=== PATIENT | female | born 1955 | race Caucasian/White ===

== ENCOUNTER 2018-09-21 10:42 | Emergency (ER) | payer BC, SELFPAY ==
[2018-09-21 10:54] VITALS: BP 152/88; PULSE 87; RESP 18; TEMP 36.5; O2SAT 99
--- NOTE | 2018-09-21 12:06 | ED.LOWEXIN ---
HPI - Extremity Injury (Lower) <Lady Bains PA-C - Last Filed: 09/21/18 21:45> General Chief Complaint: Extremity Injury, Lower Stated Complaint: Twisted left knee Time Seen by Provider: 09/21/18 12:05 Source: patient Mode of arrival: ambulatory Limitations: no limitations History of Present Illness HPI Narrative: This 63-year-old female complains of recurrent and worsening left knee pain. She states that she initially ?tore? the knee after pivoting a couple of times and had swelling and pain that gradually improved over about 6 months though she would still notice stiffness and pain especially removing from sit to stand. She states a couple of weeks ago after flying she had some increased pain, and she tripped over an area rug 3 nights ago and twisted awkwardly. She did not fall on the knee, but she has had ?excruciating? pain since then, that feels like a knife on the side of her knee especially with weight-bearing and movement. She states that she has not noticed as much swelling as over the summer, but this is more painful. She states that the pain is also worse with her ankle or groin/hip in certain positions but she does not feel like she has pain in her hip or ankle, no injuries to those areas. She states that pain is what stops her from movement and she can't tell whether there is any laxity. Pain was bad enough today that she could not even get to the crutches that she was using so decided to come in. She has tried naproxen periodically for pain which helps. Tried acetaminophen that gives stomach upset. 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 but not sure what it was Related Data Previous Rx's Medication Instructions Recorded lidocaine [Lidoderm] 2 patch TOP DAILY #30 each 09/21/18 naproxen 250 mg PO Q12H #30 tab 09/21/18 Allergies Allergy/AdvReac Type Severity Reaction Status Date / Time acetaminophen Allergy Abdominal Verified 09/21/18 13:20 Pain Penicillins Allergy Verified 09/21/18 13:20 Sulfa (Sulfonamide Allergy Verified 09/21/18 13:20 Antibiotics) Review of Systems <Lady Bains PA-C - Last Filed: 09/21/18 21:45> Review of Systems ROS Unobtainable: All systems reviewed & are unremarkable except as noted in HPI and below PFSH <Lady Bains PA-C - Last Filed: 09/21/18 21:45> Medical History (Updated 09/21/18 @ 13:31 by Lady Bains PA-C) Hypothyroidism (Chronic) Surgical History (Updated 09/21/18 @ 12:28 by Lady Bains PA-C) Status post oophorectomy (Resolved) Status post partial thyroidectomy (Resolved) Social History Smoking Status: Never smoker Social History Smoking Status: Never smoker Exam <Lady Bains PA-C - Last Filed: 09/21/18 21:45> Narrative Exam Narrative: GENERAL APPEARANCE: Patient sitting comfortably, in no distress. LUNGS: Clear to auscultation bilaterally. HEART: Rate and rhythm regular without murmur, normal S1 and S2, no S3 or S4. MUSCULOSKELETAL: Left knee there is trace effusion, moderate tenderness around the medial border of the patella common no tenderness over the joint line or other areas. She is able to flex the knee to about 45? with some tenderness. tender with passive flexion as well. She is able to fully extend. No anterior or posterior laxity. She is tender with valgus stress, unable to assess fully for laxity secondary to tenderness. No tenderness about the hip or ankle, negative Luis Enrique sign Initial Vital Signs Initial Vital Signs: Vital Signs Temperature 97.7 F 09/21/18 10:54 Pulse Rate 87 09/21/18 10:54 Respiratory Rate 18 09/21/18 10:54 Blood Pressure 152/88 H 09/21/18 10:54 Pulse Oximetry 99 09/21/18 10:54 <Vivian Ortiz DO - Last Filed: 09/22/18 09:27> Initial Vital Signs Initial Vital Signs: Vital Signs Temperature 97.7 F 09/21/18 10:54 Pulse Rate 87 09/21/18 10:54 Respiratory Rate 18 09/21/18 10:54 Blood Pressure 152/88 H 09/21/18 10:54 Pulse Oximetry 99 09/21/18 10:54 Course <Lady Bains PA-C - Last Filed: 09/21/18 21:45> Additional Information: The patient was given an immobilizer splint and felt that she would be more comfortable walking at home with a walker versus crutches. Given a walker. She will speak with her PCP and insurance since out of state and arrange for follow-up with local orthopedic provider. Orders Ordered: Discontinued Medications Naproxen (Naprosyn) 500 mg PO NOW ONE Stop: 09/21/18 12:24 Last Admin: 09/21/18 13:40 Dose: 500 mg Vital Signs - 8 hr 09/21/18 10:54 Temperature 97.7 F Pulse Rate 87 Respiratory Rate 18 Blood Pressure 152/88 H Pulse Oximetry 99 <Vivian Ortiz DO - Last Filed: 09/22/18 09:27> Orders Ordered: Discontinued Medications Naproxen (Naprosyn) 500 mg PO NOW ONE Stop: 09/21/18 12:24 Last Admin: 09/21/18 13:40 Dose: 500 mg Vital Signs - 8 hr 09/21/18 10:54 Temperature 97.7 F Pulse Rate 87 Respiratory Rate 18 Blood Pressure 152/88 H Pulse Oximetry 99 MDM - Extremity Injury (Lower) <Lady Bains PA-C - Last Filed: 09/21/18 21:45> Imaging Data knee: Radiologist's impression: [place] [address] XRay Report Signed Patient: Tawana Lyn#: [id number] : 5Acct:[id number] Age/Sex: 63 / FDate of Service: 09/21/18 Loc: ED Accession Number: [id number] Procedure: XR knee LT 3V Ordering Provider: Lady Bains P.A-C PROCEDURE: XR KNEE LT 3V INDICATIONS: recurrent pain, effusion medial TECHNIQUE: 3 views of the knee were acquired. COMPARISON: None. FINDINGS: Bones: No fractures or dislocations. No suspicious bony lesions. Soft tissues: Small left knee joint effusion. IMPRESSION: Small left knee joint effusion, with no fracture or dislocation of the left knee identified. Consider followup radiographs in 7-10 days if there is continued clinical concern. Dictated by: José Saunders M.D. on 09/21/2018 at 12:57 Approved by: José Saunders M.D. on 09/21/2018 at 13:00 Discharge Plan Departure Patient Disposition: Home Clinical Impression: Internal derangement of left knee Discharge Date/Time: 09/21/18 14:03 Interventions: ED Discharge Assessment Last Done: 09/21/18 14:03 Instructions: DI for Meniscal Tear Activity Restrictions/Additional Instructions: I agree with you that your knee pain sounds most like a torn meniscus or other soft tissue or ligamentous injury (there may be a combination given your previous injuries). There was a little bit of fluid in the joint today on her x-ray, likely due to the acute injury, but no acute problem in the bone or joint found. Please use the knee immobilizer brace and crutches, and you can start gentle weight-bearing with the brace as you tolerate on flat ground. Avoid uneven surfaces. Take rsuy-dek-mdsupoh naproxen (Aleve) 1 tablet twice daily for pain and inflammation, and you can increase to 2 tablets if needed. It is also okay to add topical rubs or medicines as well as use ice and heat, and I have sent in a prescription for lidocaine patches for you to put on the sore areas during the daytime. Please talk with your primary care office and your insurance and request a referral to a local rn documentation specialist and set up an appointment as soon as possible for further evaluation. Prescriptions: New lidocaine [Lidoderm] 5 % adhesive patch,medicated 2 patch TOP DAILY Qty: 30 RF: 0 naproxen 250 mg tablet 250 mg PO Q12H Qty: 30 RF: 0 Referrals: [facility] [Other] <Vivian Ortiz DO - Last Filed: 09/22/18 09:27> Cosign ED Attending Cosignature Attestation: I was immediately available in the department for consultation. This documentation has been reviewed and I agree with assessment and plan. Supervised by Vivian Ortiz DO
--- NOTE | 2018-09-21 12:23 | DI.RAD.S_ITS ---
PROCEDURE: XR KNEE LT 3V INDICATIONS: recurrent pain, effusion medial TECHNIQUE: 3 views of the knee were acquired. COMPARISON: None. FINDINGS: Bones: No fractures or dislocations. No suspicious bony lesions. Soft tissues: Small left knee joint effusion. IMPRESSION: Small left knee joint effusion, with no fracture or dislocation of the left knee identified. Consider followup radiographs in 7-10 days if there is continued clinical concern. Dictated by: José Saunders M.D. on 09/21/2018 at 12:57 Approved by: José Saunders M.D. on 09/21/2018 at 13:00
--- NOTE | 2018-09-21 12:29 | ED_ITS ---
HPI - Extremity Injury (Lower) <Lady Bains PA-C - Last Filed: 09/21/18 21:45> General Chief Complaint: Extremity Injury, Lower Stated Complaint: Twisted left knee Time Seen by Provider: 09/21/18 12:05 Source: patient Mode of arrival: ambulatory Limitations: no limitations History of Present Illness HPI Narrative: This 63-year-old female complains of recurrent and worsening left knee pain. She states that she initially ?tore? the knee after pivoting a couple of times and had swelling and pain that gradually improved over about 6 months though she would still notice stiffness and pain especially removing from sit to stand. She states a couple of weeks ago after flying she had some increased pain, and she tripped over an area rug 3 nights ago and twisted awkwardly. She did not fall on the knee, but she has had ?excruciating? pain since then, that feels like a knife on the side of her knee especially with weight-bearing and movement. She states that she has not noticed as much swelling as over the summer, but this is more painful. She states that the pain is also worse with her ankle or groin/hip in certain positions but she does not feel like she has pain in her hip or ankle, no injuries to those areas. She states that pain is what stops her from movement and she can't tell whether there is any laxity. Pain was bad enough today that she could not even get to t he crutches that she was using so decided to come in. She has tried naproxen periodically for pain which helps. Tried acetaminophen that gives stomach upset. 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 but not sure what it was Related Data Previous Rx's Medication Instructions Recorded lidocaine [Lidoderm] 2 patch TOP DAILY #30 each 09/21/18 naproxen 250 mg PO Q12H #30 tab 09/21/18 Allergies Allergy/AdvReac Type Severity Reaction Status Date / Time acetaminophen Allergy Abdominal Verified 09/21/18 13:20 Pain Penicillins Allergy Verified 09/21/18 13:20 Sulfa (Sulfonamide Allergy Verified 09/21/18 13:20 Antibiotics) Review of Systems <Lady Bains PA-C - Last Filed: 09/21/18 21:45> Review of Systems ROS Unobtainable: All systems reviewed & are unremarkable except as noted in HPI and below PFSH <Lady Bains PA-C - Last Filed: 09/21/18 21:45> Medical History (Updated 09/21/18 @ 13:31 by Lady Bains PA-C) Hypothyroidism (Chronic) Surgical History (Updated 09/21/18 @ 12:28 by Lady Bains PA-C) Status post oophorectomy (Resolved) Status post partial thyroidectomy (Resolved) Social History Smoking Status: Never smoker Social History Smoking Status: Never smoker Exam <Lady Bains PA-C - Last Filed: 09/21/18 21:45> Narrative Exam Narrative: GENERAL APPEARANCE: Patient sitting comfortably, in no distress. LUNGS: Clear to auscultation bilaterally. HEART: Rate and rhythm regular without murmur, normal S1 and S2, no S3 or S4. MUSCULOSKELETAL: Left knee there is trace effusion, moderate tenderness around the medial border of the patella common no tenderness over the joint line or other areas. She is able to flex the knee to about 45? with some tenderness. tender with passive flexion as well. She is able to fully extend. No anterior or posterior laxity. She is tender with valgus stress, unable to assess fully for laxity secondary to tenderness. No tenderness about the hip or ankle, negative Luis Enrique sign Initial Vital Signs Initial Vital Signs: Vital Signs Temperature 97.7 F 09/21/18 10:54 Pulse Rate 87 09/21/18 10:54 Respiratory Rate 18 09/21/18 10:54 Blood Pressure 152/88 H 09/21/18 10:54 Pulse Oximetry 99 09/21/18 10:54 <Vivian Ortiz DO - Last Filed: 09/22/18 09:27> Initial Vital Signs Initial Vital Signs: Vital Signs Temperature 97.7 F 09/21/18 10:54 Pulse Rate 87 09/21/18 10:54 Respiratory Rate 18 09/21/18 10:54 Blood Pressure 152/88 H 09/21/18 10:54 Pulse Oximetry 99 09/21/18 10:54 Course <Lady Bains PA-C - Last Filed: 09/21/18 21:45> Additional Information: The patient was given an immobilizer splint and felt that she would be more comfortable walking at home with a walker versus crutches. Given a walker. She will speak with her PCP and insurance since out of state and arrange for follow-up with local orthopedic provider. Orders Ordered: Discontinued Medications Naproxen (Naprosyn) 500 mg PO NOW ONE Stop: 09/21/18 12:24 Last Admin: 09/21/18 13:40 Dose: 500 mg Vital Signs - 8 hr 09/21/18 10:54 Temperature 97.7 F Pulse Rate 87 Respiratory Rate 18 Blood Pressure 152/88 H Pulse Oximetry 99 <Vivian Ortiz DO - Last Filed: 09/22/18 09:27> Orders Ordered: Discontinued Medications Naproxen (Naprosyn) 500 mg PO NOW ONE Stop: 09/21/18 12:24 Last Admin: 09/21/18 13:40 Dose: 500 mg Vital Signs - 8 hr 09/21/18 10:54 Temperature 97.7 F Pulse Rate 87 Respiratory Rate 18 Blood Pressure 152/88 H Pulse Oximetry 99 MDM - Extremity Injury (Lower) <Lady Bains PA-C - Last Filed: 09/21/18 21:45> Imaging Data knee: Radiologist's impression: [place] [address] XRay Report Signed Patient: Tawana Lyn#: [id number] : 5Acct:[id number] Age/Sex: 63 / FDate of Service: 09/21/18 Loc: ED Accession Number: [id number] Procedure: XR knee LT 3V Ordering Provider: Lady Bains P.A-C PROCEDURE: XR KNEE LT 3V INDICATIONS: recurrent pain, effusion medial TECHNIQUE: 3 views of the knee were acquired. COMPARISON: None. FINDINGS: Bones: No fractures or dislocations. No suspicious bony lesions. Soft tissues: Small left knee joint effusion. IMPRESSION: Small left knee joint effusion, with no fracture or dislocation of the left knee identified. Consider followup radiographs in 7-10 days if there is continued clinical concern. Dictated by: José Saunders M.D. on 09/21/2018 at 12:57 Approved by: José Saunders M.D. on 09/21/2018 at 13:00 Discharge Plan Departure Patient Disposition: Home Clinical Impression: Internal derangement of left knee Discharge Date/Time: 09/21/18 14:03 Interventions: ED Discharge Assessment Last Done: 09/21/18 14:03 Instructions: DI for Meniscal Tear Activity Restrictions/Additional Instructions: I agree with you that your knee pain sounds most like a torn meniscus or other soft tissue or ligamentous injury (there may be a combination given your previous injuries). There was a little bit of fluid in the joint today on her x-ray, likely due to the acute injury, but no acute problem in the bone or joint found. Please use the knee immobilizer brace and crutches, and you can start gentle weight-bearing with the brace as you tolerate on flat ground. Avoid uneven surfaces. Take mves-aio-goucdia naproxen (Aleve) 1 tablet twice daily for pain and inflammation, and you can increase to 2 tablets if needed. It is also okay to add topical rubs or medicines as well as use ice and heat, and I have sent in a prescription for lidocaine patches for you to put on the sore areas during the daytime. Please talk with your primary care office and your insurance and request a referral to a local strategic debriefing specialist and set up an appointment as soon as possible for further evaluation. Prescriptions: New lidocaine [Lidoderm] 5 % adhesive patch,medicated 2 patch TOP DAILY Qty: 30 RF: 0 naproxen 250 mg tablet 250 mg PO Q12H Qty: 30 RF: 0 Referrals: [facility] [Other] <Vivian Ortiz DO - Last Filed: 09/22/18 09:27> Cosign ED Attending Cosignature Attestation: I was immediately available in the department for consultation. This documentation has been reviewed and I agree with assessment and plan. Supervised by Vivian Ortiz DO
[2018-09-21 13:15] VITALS: BP 147/72; PULSE 81; RESP 18; O2SAT 98
[2018-09-21] MEDS: NAPROXEN 250 MG TABLET 500 MG PO (13:40)
== END 2018-09-21 14:03 | disposition home or self-care (01) ==
PROVIDERS: Emergency Provider Internal Medicine
DX: M23.92 Unspecified internal derangement of left knee (principal)
CPT/HCPCS: 73562; 99283

== ENCOUNTER → 2021-05-18 08:31 | Outpatient (CLI) | payer OTHER, SELFPAY ==
[2021-05-18 18:54] LABS: Alanine Aminotransferase 27 IU/L (<35); Albumin 3.9 g/dL (3.5-5.0); Albumin Globulin Ratio 1.4 (1.0-2.8); Alkaline Phosphatase 115 U/L (38-126); Aspartate Aminotransferase 33 IU/L (14-36); BUN Creatinine Ratio 27.8 (6-22); Bilirubin Total 0.6 mg/dL (0.2-1.3); Blood Urea Nitrogen 20 mg/dL (7-17); Calcium 9.5 mg/dL (8.4-10.2); Carbon Dioxide 24 mmol/L (22-32); Chloride 105 mmol/L (98-107); Cholesterol 182 mg/dL (140-199); Estimated Glomerular Filt Rate > 60.0 mL/min (>60); Globulin 2.7 g/dL (1.7-4.1); Glucose 95 mg/dL (80-110); HDL Cholesterol 53 mg/dL (40-60); HEMOLYSIS 19 (0-50); LDL Cholesterol Calculated 103 mg/dL (<100); Potassium 4.4 mmol/L (3.4-5.1); Sodium 137 mmol/L (137-145); Total Protein 6.6 g/dL (6.3-8.2); Triglycerides 129 mg/dL (35-150)
[2021-05-18 18:56] LABS: Hemoglobin A1C% w Est Avg Glu 5.3 % (4.0-6.0)
[2021-05-18 19:09] LABS: Vitamin D 25 Hydroxy (D3) 72.3 ng/mL (30.0-100.0)
[2021-05-18 19:40] LABS: Vitamin B12 786 pg/mL (239-931)
== END ==
PROVIDERS: PCP Physician Assistant Medical; Visit Provider Physician Assistant Medical
DX: Z78.9 Other specified health status (principal); E78.5 Hyperlipidemia, unspecified; R73.9 Hyperglycemia, unspecified
CPT/HCPCS: 80053; 80061; 82306; 82607; 83036

== ENCOUNTER → 2021-06-23 11:36 | Outpatient (CLI) | payer OTHER, SELFPAY ==
[2021-06-23 19:50] LABS: TSH w/ Reflex to FT4 < 0.02 uIU/mL (0.47-4.68)
[2021-06-23 20:40] LABS: Free T4, Direct Thyroxine 1.31 ng/dL (0.78-2.19)
== END ==
PROVIDERS: PCP Physician Assistant Medical; Visit Provider Physician Assistant Medical
DX: E03.9 Hypothyroidism, unspecified (principal)
CPT/HCPCS: 84439; 84443

== ENCOUNTER → 2021-10-15 11:08 | Outpatient (CLI) | payer OTHER, SELFPAY ==
[2021-10-15 19:35] LABS: Free T3, Triiodothyronine Free 7.25 pg/mL (2.77-5.27); Free T4, Direct Thyroxine 1.54 ng/dL (0.78-2.19)
[2021-10-15 19:48] LABS: TSH w/ Reflex to FT4 < 0.02 uIU/mL (0.47-4.68)
== END ==
PROVIDERS: PCP Physician Assistant Medical; Visit Provider Physician Assistant
DX: E03.9 Hypothyroidism, unspecified (principal)
CPT/HCPCS: 84439; 84443; 84481

== ENCOUNTER → 2022-03-14 14:06 | Outpatient (CLI) | payer OTHER, SELFPAY ==
[2022-03-14 20:47] LABS: Free T3, Triiodothyronine Free 6.66 pg/mL (2.77-5.27); Free T4, Direct Thyroxine 1.73 ng/dL (0.78-2.19)
[2022-03-14 21:01] LABS: TSH w/ Reflex to FT4 < 0.02 uIU/mL (0.47-4.68)
== END ==
PROVIDERS: PCP Physician Assistant Medical; Visit Provider Physician Assistant
DX: E89.0 Postprocedural hypothyroidism (principal)
CPT/HCPCS: 84439; 84443; 84481

== ENCOUNTER → 2022-05-02 14:41 | Outpatient (CLI) | payer OTHER, SELFPAY ==
[2022-05-02 19:18] LABS: Add Manual Diff / Slide Review NO; Basophils Absolute Auto 0 /uL (0-100); Basophils Percent Auto 0.3 % (0-2); Eosinophils Absolute Auto 100 /uL (0-450); Eosinophils Percent Auto 1.7 % (2-4); Hematocrit 44.3 % (36-46); Lymphocytes Absolute Auto 1500 /uL (1100-4500); Lymphocytes Percent Auto 22.4 % (25-40); Mean Corpuscular HGB Conc 33.8 % (30-36); Mean Corpuscular Hemoglobin 28.9 PG (26-34); Mean Corpuscular Volume 85.3 fL (80-100); Monocytes Absolute Auto 400 /uL (0-900); Monocytes Percent Auto 5.4 % (3-14); Neutrophils Absolute Auto 4600 /uL (1500-7000); Neutrophils Percent Auto 70.2 % (50-75); Platelet Count 247 X10^3/uL (150-400); White Blood Cell Count 6.5 X10^3/uL (4.5-11.0)
[2022-05-02 19:25] LABS: Alanine Aminotransferase 28 IU/L (<35); Albumin Globulin Ratio 1.4 (1.0-2.8); Alkaline Phosphatase 108 U/L (38-126); Aspartate Aminotransferase 32 IU/L (14-36); BUN Creatinine Ratio 18.2 (6-22); Bilirubin Total 0.4 mg/dL (0.2-1.3); Blood Urea Nitrogen 14 mg/dL (7-17); Calcium 9.3 mg/dL (8.4-10.2); Carbon Dioxide 31 mmol/L (22-32); Chloride 101 mmol/L (98-107); Estimated Glomerular Filt Rate > 60 mL/min (>60); Globulin 2.8 g/dL (1.7-4.1); Glucose 101 mg/dL (80-110); HEMOLYSIS < 15 (0-50); Potassium 4.1 mmol/L (3.4-5.1); Sodium 141 mmol/L (137-145); Total Protein 6.8 g/dL (6.3-8.2)
[2022-05-02 19:46] LABS: Free T3, Triiodothyronine Free 5.99 pg/mL (2.77-5.27); Free T4, Direct Thyroxine 1.17 ng/dL (0.78-2.19)
[2022-05-02 20:00] LABS: Thyroid Stimulating Hormone 0.092 uIU/mL (0.47-4.68)
== END ==
PROVIDERS: PCP Physician Assistant; Visit Provider Physician Assistant
DX: E89.0 Postprocedural hypothyroidism (principal); R29.898 Other symptoms and signs involving the musculoskeletal system; R63.5 Abnormal weight gain
CPT/HCPCS: 80053; 84439; 84443; 84481; 85025

== ENCOUNTER → 2022-12-22 10:59 | Outpatient (CLI) | payer OTHER, SELFPAY ==
[2022-12-22 20:16] LABS: Add Manual Diff / Slide Review NO; Basophils Absolute Auto 0 /uL (0-100); Basophils Percent Auto 0.5 % (0-2); Eosinophils Absolute Auto 100 /uL (0-450); Eosinophils Percent Auto 1.7 % (2-4); Hematocrit 45.6 % (36-46); Hemoglobin 15.3 g/dL (12.0-16.0); Lymphocytes Absolute Auto 1600 /uL (1100-4500); Lymphocytes Percent Auto 22.6 % (25-40); Mean Corpuscular HGB Conc 33.6 % (30-36); Mean Corpuscular Hemoglobin 29.1 PG (26-34); Mean Corpuscular Volume 86.6 fL (80-100); Monocytes Absolute Auto 500 /uL (0-900); Monocytes Percent Auto 7.1 % (3-14); Neutrophils Absolute Auto 4800 /uL (1500-7000); Neutrophils Percent Auto 68.1 % (50-75); Platelet Count 250 X10^3/uL (150-400); Red Blood Cell Count 5.26 X10^6/uL (4.0-5.2); Red Cell Distribution Width 13.4 % (11.6-14.8); White Blood Cell Count 7.1 X10^3/uL (4.5-11.0)
[2022-12-22 21:46] LABS: Free T3, Triiodothyronine Free 3.65 pg/mL (2.77-5.27); Free T4, Direct Thyroxine 1.69 ng/dL (0.78-2.19)
[2022-12-23 01:23] LABS: Thyroid Stimulating Hormone 1.62 uIU/mL (0.47-4.68)
== END ==
PROVIDERS: PCP Physician Assistant; Visit Provider Physician Assistant
DX: E89.0 Postprocedural hypothyroidism (principal)
CPT/HCPCS: 84439; 84443; 84481; 85025

== ENCOUNTER 2022-12-31 14:49 | Emergency (ER) | payer OTHER, SELFPAY ==
[2022-12-31 14:56] VITALS: BP 158/73; PULSE 82; RESP 18; TEMP 36.6; O2SAT 98; BMI 36.6
== END 2022-12-31 15:59 | disposition left against medical advice (07) ==
PROVIDERS: Emergency Provider Emergency Medicine; PCP Physician Assistant
CPT/HCPCS: 99281

== ENCOUNTER → 2024-01-24 10:07 | Outpatient (CLI) | payer OTHER, SELFPAY ==
[2024-01-24 19:56] LABS: Add Manual Diff / Slide Review NO; Basophils Absolute Auto 100 /uL (0-100); Eosinophils Absolute Auto 100 /uL (0-450); Eosinophils Percent Auto 1.9 % (2-4); Hematocrit 45.4 % (36-46); Hemoglobin 15.1 g/dL (12.0-16.0); Lymphocytes Absolute Auto 1300 /uL (1100-4500); Lymphocytes Percent Auto 22.7 % (25-40); Mean Corpuscular HGB Conc 33.4 % (30-36); Mean Corpuscular Volume 86.9 fL (80-100); Monocytes Absolute Auto 400 /uL (0-900); Monocytes Percent Auto 6.5 % (3-14); Neutrophils Absolute Auto 4000 /uL (1500-7000); Neutrophils Percent Auto 67.9 % (50-75); Platelet Count 239 X10^3/uL (150-400); Red Blood Cell Count 5.22 X10^6/uL (4.0-5.2); Red Cell Distribution Width 13.5 % (11.6-14.8); White Blood Cell Count 5.9 X10^3/uL (4.5-11.0)
[2024-01-24 19:58] LABS: Alanine Aminotransferase 24 IU/L (<35); Albumin 4.1 g/dL (3.5-5.0); Albumin Globulin Ratio 1.2 (1.0-2.8); Alkaline Phosphatase 107 U/L (38-126); Aspartate Aminotransferase 106 IU/L (14-36); BUN Creatinine Ratio 20.7 (6-22); Bilirubin Total 0.7 mg/dL (0.2-1.3); Blood Urea Nitrogen 17 mg/dL (7-17); Calcium 9.2 mg/dL (8.4-10.2); Carbon Dioxide 25 mmol/L (22-32); Chloride 107 mmol/L (98-107); Cholesterol 203 mg/dL (140-199); Estimated Glomerular Filt Rate > 60 mL/min (>60); Globulin 3.4 g/dL (1.7-4.1); Glucose 89 mg/dL (80-110); HDL Cholesterol 58 mg/dL (40-60); HEMOLYSIS 42 (0-50); LDL Cholesterol Calculated 122 mg/dL (<100); Potassium 4.1 mmol/L (3.4-5.1); Sodium 139 mmol/L (137-145); Total Protein 7.5 g/dL (6.3-8.2); Triglycerides 114 mg/dL (35-150)
[2024-01-24 20:29] LABS: Thyroid Stimulating Hormone 1.95 uIU/mL (0.47-4.68)
== END ==
PROVIDERS: PCP Family Medicine; Visit Provider Family Medicine
DX: E03.9 Hypothyroidism, unspecified (principal); R73.9 Hyperglycemia, unspecified; E78.5 Hyperlipidemia, unspecified
CPT/HCPCS: 80053; 80061; 84443; 85025

== ENCOUNTER → 2024-02-28 12:15 | Outpatient (CLI) | payer OTHER, SELFPAY ==
--- NOTE | 2024-02-28 12:17 | DI.RAD.S_ITS ---
PROCEDURE: XR DEXA AXIAL SKELETON INDICATIONS: screening COMPARISON: None. FINDINGS: Lumbar Spine: Bone mineral density 0.967 g/cm2, T score -0.7. Left Hip: Bone mineral density 0.933 g/cm2, T score -0.1. Left Femoral Neck: Bone mineral density 0.660 g/cm2, T score -1.7. Right Hip: Bone mineral density 0.910 g/cm2, T score -0.3. Right Femoral Neck: Bone mineral density 0.701 g/cm2, T score -1.3. Fracture Risk Calculation (when applicable): 10-year fracture risk of a major osteoporotic fracture 8.3% and of a hip fracture 0.9% without prior fracture 13% 1.4% with history of prior fracture.. (T score greater or equal to -1.0 to: NORMAL) (T score from -1.1 to -2.4: OSTEOPENIA) (T score less than or equal to -2.5: OSTEOPOROSIS) IMPRESSION: Zaru-dd-[id number] osteopenia is present in both the left and right femoral neck respectively. Follow-up guidelines as follows: Osteoporosis: Consider a repeat DEXA and Vertebral Fracture Assessment (VFA) exam in 2 years or sooner if medically necessary, to reassess this patient's status. Osteopenia: Consider a repeat DEXA in 2-3 years to reassess this patient's status, or if there is a new clinical indication. Normal: Consider a repeat DEXA in 5 years or sooner, or if there is a new clinical indication. All treatment decisions require clinical judgment and consideration of individual patient factors, including patient preferences, comorbidities, previous drug use, risk factors not captured in the FRAX model (e.g., frailty, falls, vitamin D deficiency, increased bone turnover, interval significant decline in bone density ) and possible under- or over-estimation of fracture risk by FRAX. In addition, the NOF Guide recommends that FDA-approved medical therapies be considered in postmenopausal women and men age >= 50 years with a: * Hip or vertebral (clinical or morphometric) fracture * T-score of <=-2.5 at the spine or hip * Ten-year fracture probability by FRAX of >= 3% for hip fracture or >=20% for major osteoporotic fracture. People with diagnosed cases of osteoporosis or at high risk for fracture should have regular bone mineral density tests. For patients eligible for Medicare, routine testing is allowed once every 2 years. The testing frequency can be increased to one year for patients who have rapidly progressing disease, those who are receiving or discontinuing medical therapy to restore bone mass, or have additional risk factors. Dictated by: Laury Matias M.D. on 02/28/2024 at 16:52 Approved by: Laury Matias M.D. on 02/28/2024 at 16:53
== END ==
PROVIDERS: PCP Family Medicine; Referring Provider Family Medicine; Visit Provider Family Medicine
DX: Z78.0 Asymptomatic menopausal state (principal); Z87.81 Personal history of (healed) traumatic fracture; M85.89 Other specified disorders of bone density and structure, multiple sites
CPT/HCPCS: 77080

== ENCOUNTER → 2024-09-26 13:03 | Outpatient (CLI) | payer OTHER, SELFPAY ==
[2024-09-26 19:34] LABS: HEMOLYSIS 19 (0-50); Iron 76 ug/dL (37-170)
[2024-09-26 19:35] LABS: Alanine Aminotransferase 25 IU/L (<35); Albumin 4.8 g/dL (3.5-5.0); Albumin Globulin Ratio 1.7 (1.0-2.8); Alkaline Phosphatase 132 U/L (38-126); Aspartate Aminotransferase 42 IU/L (14-36); Bilirubin Total 0.9 mg/dL (0.2-1.3); Bilirubin Unconjugated 0.2 mg/dL (0.0-1.1); Globulin 2.9 g/dL (1.7-4.1); Total Protein 7.7 g/dL (6.3-8.2)
[2024-09-26 19:37] LABS: HEMOLYSIS 78 (0-50)
[2024-09-26 19:53] LABS: Percent Iron Saturation 21 % (15-50); Total Iron Binding Capacity 361 ug/dL (265-497); Transferrin 307 mg/dL (206-381)
[2024-09-26 20:15] LABS: Ferritin 25 ng/mL (11-264)
[2024-09-26 20:33] LABS: Vitamin B12 294 pg/mL (239-931)
[2024-09-28 00:40] LABS: HBsAg Screen Negative (Negative); Hepatitis A Antibody IgM Negative (Negative); Hepatitis B Core Antibody IgM Negative (Negative); Hepatitis C Antibody Non Reactive (Non Reactive)
[2024-09-30 13:40] LABS: Albumin 3.6 g/dL (2.9-4.4); Alpha-1-Globulin 0.2 g/dL (0.0-0.4); Alpha-2-Globulin 0.8 g/dL (0.4-1.0); Gamma Globulin 1.1 g/dL (0.4-1.8); Globulin Total 3.2 g/dL (2.2-3.9); Protein, Total 6.8 g/dL (6.0-8.5)
[2024-09-30 16:08] LABS: Free Kappa Lt Chains, Serum 22.5 mg/L (3.3-19.4); Free Lambda Lt Chains,Serum 14.9 mg/L (5.7-26.3)
[2024-10-01 21:36] LABS: ANA Screen, IFA Positive (.)
== END ==
PROVIDERS: PCP Family Medicine; Visit Provider Family Medicine
DX: I10 Essential (primary) hypertension (principal); R53.83 Other fatigue; R74.01 Elevation of levels of liver transaminase levels; E66.9 Obesity, unspecified; E03.9 Hypothyroidism, unspecified; E78.5 Hyperlipidemia, unspecified; Z71.3 Dietary counseling and surveillance
CPT/HCPCS: 80074; 80076; 82306; 82607; 82728; 83540; 83550; 83883; 84155; 84165; 86038

== ENCOUNTER → 2025-01-08 13:31 | Outpatient (CLI) | payer OTHER, SELFPAY ==
[2025-01-08 20:07] LABS: Free T3, Triiodothyronine Free 3.39 pg/mL (2.77-5.27); Free T4, Direct Thyroxine 1.43 ng/dL (0.78-2.19)
[2025-01-08 20:20] LABS: Thyroid Stimulating Hormone 2.44 uIU/mL (0.47-4.68)
== END ==
PROVIDERS: PCP Family Medicine; Visit Provider Family Medicine
DX: E89.0 Postprocedural hypothyroidism (principal); Z68.41 Body mass index [BMI] 40.0-44.9, adult
CPT/HCPCS: 84439; 84443; 84481

== ENCOUNTER → 2025-03-13 11:20 | Outpatient (CLI) | payer OTHER, SELFPAY ==
--- NOTE | 2025-03-13 11:21 | DI.US.S_ITS ---
PROCEDURE: US THYROID INDICATIONS: RIGHT THYROIDECTOMY 15 YEARS AGO DUE TO LARGE BENIGN NODULE TECHNIQUE: Real-time scanning was performed of the thyroid gland, with image documentation. Fifteen images COMPARISON: None. FINDINGS: Thyroid: Status post right thyroidectomy without residual/recurrent thyroid tissue. Mildly heterogeneous left thyroid lobe without focal nodule. Left thyroid lobe measures approximately 4.1 x 1.7 x 1.1 cm. IMPRESSION: Right thyroidectomy. Mildly heterogeneous left thyroid lobe without nodule. Dictated by: Filiberto Francis M.D. on 03/14/2025 at 14:26 Approved by: Filiberto Francis M.D. on 03/14/2025 at 14:31
--- NOTE | 2025-03-13 11:22 | DI.US.S_ITS ---
PROCEDURE: US ABDOMEN LIMITED INDICATIONS: RIGHT UPPER QUADRANT PAIN TECHNIQUE: Real-time focused scanning was performed of the abdomen, with image documentation. Forty-three images and 1 cine series. COMPARISON: No prior ultrasound abdomen. FINDINGS: Liver measures approximately 13.6 cm in CC dimension of the right lobe within normal limits in size. Mild diffuse increased echogenicity of the liver commonly hepatic steatosis or intrinsic hepatic disease. Cholelithiasis with 8 mm gallstone near the gallbladder neck. No ultrasound evidence of gallbladder wall thickening or pericholecystic fluid. Sonographic Cárdenas sign is not delineated. If there is high clinical suspicion of cholecystitis nuclear medicine HIDA scan or CT abdomen/pelvis could be performed. Common bile duct 6 mm within normal limits. No intrahepatic biliary ductal dilatation. Pancreas is not well visualized due to overlying bowel gas. IMPRESSION: Cholelithiasis as discussed above. Mild increased echogenicity of the liver. If symptoms persist or worsen, or there is high clinical suspicion of gallbladder or other abdominal abnormality, CT or HIDA scan could be performed. Dictated by: Filiberto Francis M.D. on 03/14/2025 at 14:31 Approved by: Filiberto Francis M.D. on 03/14/2025 at 14:34
== END ==
PROVIDERS: PCP Family Medicine; Referring Provider Family Medicine; Visit Provider Physician Assistant
DX: E89.0 Postprocedural hypothyroidism (principal); K80.20 Calculus of gallbladder without cholecystitis without obstruction; R10.11 Right upper quadrant pain
CPT/HCPCS: 76536; 76705